=== PATIENT | female | born 1955 | race Caucasian/White ===

== ENCOUNTER → 2023-08-21 09:03 | Outpatient (REF) | payer MEDICARE, OTHER, SELFPAY ==
[2023-08-21 09:39] LABS: % Basophils 1.3 % (0-2); % Eosinophils 5.4 % (0-6); % Immature Granulocytes 0.2 % (0-0.5); % Lymphocytes 30.1 % (20.5-51.1); % Monocytes 11.7 % (1.7-9.3); % Neutrophils 51.3 % (42.2-75.2); Absolute Basophils 0.1 10^3/uL (0-0.2); Absolute Eosinophils 0.3 10^3/uL (0-0.7); Absolute Lymphocytes 1.6 10^3/uL (1.2-3.4); Absolute Monocytes 0.6 10^3/uL (0.1-0.6); Absolute Neutrophils 2.7 10^3/uL (1.4-6.5); Hematocrit 43.2 % (37.0-47.0); Hemoglobin 13.9 g/dL (12.0-16.0); Mean Corp Hgb Conc. 32.2 g/dL (33.0-37.0); Mean Corpuscular Hgb 29.4 pg (27.0-31.0); Mean Corpuscular Volume 91.5 fL (81.0-99.0); Mean Platelet Volume 9.6 fL (7.4-10.4); Nucleated Red Blood Cells % 0 %; Platelet Count 309 10^3/uL (130-400); Red Blood Cell Count 4.72 10^6/uL (4.20-5.40); Red Cell Dist. Width 13.5 % (11.5-14.5); White Blood Cell Count 5.2 10^3/uL (4.8-10.8)
[2023-08-21 10:22] LABS: ALT (SGPT) 17 U/L (0-35); AST (SGOT) 24 U/L (14-36); Albumin 4.1 g/dl (3.5-5.0); Alkaline Phosphatase 77 U/L (38-126); Blood Urea Nitrogen 14 mg/dl (7-17); Calcium 9.5 mg/dl (8.4-10.2); Carbon Dioxide 29 mmol/L (22-30); Chloride 106 mmol/L (98-107); Glucose 101 mg/dl (70-99); HDL Cholesterol 45 mg/dl; LDL Cholesterol, Calculated 167 mg/dl; Potassium 4.7 mmol/L (3.5-5.1); Sodium 143 mmol/L (135-145); Total Bilirubin 0.7 mg/dl (0.2-1.3); Total Cholesterol 236 mg/dl (50-199); Total Protein 7.2 g/dl (6.3-8.2); Triglyceride 124 mg/dl (10-149); Very Low Density Lipoprotein 24 mg/dl (0-30); eGFR > 60.00
[2023-08-21 10:33] LABS: TSH 1.85 uIU/ml (0.47-4.68)
== END ==
LOC: REG 09:03
PROVIDERS: ATTENDING PHYSICIAN Family Medicine
DX: E78.2 Mixed hyperlipidemia (principal); I10 Essential (primary) hypertension; Z98.84 Bariatric surgery status
CPT/HCPCS: 36415; 80053; 80061; 84443; 85025

== ENCOUNTER → 2023-09-12 12:13 | Outpatient (REF) | payer MEDICARE, OTHER, SELFPAY | LOC: HWRAD 12:13 | PROVIDERS: ATTENDING PHYSICIAN Orthopaedic Surgery Hand Surgery; FAMILY PHYSICIAN Family Medicine | DX: M25.511 Pain in right shoulder (principal) | CPT/HCPCS: 73200 ==

== ENCOUNTER 2023-09-24 06:02 | Day surgery (SDC) | payer MEDICARE, OTHER, SELFPAY ==
--- NOTE | 2023-08-29 11:06 | CM ---
Patient is scheduled for an elective R TSA on 09/24/23- she is a same day patient. Spoke with patient prior to surgery. Introduced role of Orthopedic Navigator. Patient reports that she lives with her in a two story home. Currently she
functions independently. She does not use any DME but has her sling, a raised toilet seat and two rolling walkers. She has never had VN services. PCP is Dr. Bridger Lemons.
Discussed orthopedic program and post surgical plans. Patient will return home when directed by surgeon. Reviewed MD follow up and transition to outpatient therapy. Patient is in agreement with tentative plan and states that her will be home
with her and can assist if needed.
Patient will complete online education.
Plan: Orthopedic Navigator will be involved in the care of patient after surgery and will reassess discharge needs at that time.
[2023-09-03 12:12] VITALS: BMI 32.2
[2023-09-03 13:35] LABS: Hematocrit 41.5 % (37.0-47.0); Hemoglobin 13.8 g/dL (12.0-16.0); Mean Corp Hgb Conc. 33.3 g/dL (33.0-37.0); Mean Corpuscular Hgb 29.4 pg (27.0-31.0); Mean Corpuscular Volume 88.5 fL (81.0-99.0); Mean Platelet Volume 10.1 fL (7.4-10.4); Platelet Count 339 10^3/uL (130-400); Red Blood Cell Count 4.69 10^6/uL (4.20-5.40); Red Cell Dist. Width 13.4 % (11.5-14.5); White Blood Cell Count 6.6 10^3/uL (4.8-10.8)
[2023-09-03 14:13] LABS: ALT (SGPT) 14 U/L (0-35); AST (SGOT) 23 U/L (14-36); Albumin 4.1 g/dl (3.5-5.0); Alkaline Phosphatase 80 U/L (38-126); Blood Urea Nitrogen 10 mg/dl (7-17); Calcium 9.3 mg/dl (8.4-10.2); Carbon Dioxide 29 mmol/L (22-30); Chloride 104 mmol/L (98-107); Estimated Creatinine Clearance 93 ml/min; Glucose 86 mg/dl (70-99); Potassium 4.7 mmol/L (3.5-5.1); Sodium 140 mmol/L (135-145); Total Bilirubin 0.8 mg/dl (0.2-1.3); Total Protein 7.1 g/dl (6.3-8.2); eGFR > 60.00
[2023-09-04 14:24] LABS: Glycohemoglobin (HgbA1c) 5.5 % (4.0-5.6)
[2023-09-24] VITALS (8 sets, daily range): BP systolic 105–146; BP diastolic 67–89; BMI 32.2
[2023-09-24] MEDS: CELEBREX 200 MG PO (06:21)
[2023-09-24] MEDS: TYLENOL 1000 MG PO (06:21)
[2023-09-24] MEDS: NORMOSOL-R 1000 IV (06:39)
[2023-09-24] MEDS: ANCEF 5 IV (11:23)
== END 2023-09-24 11:42 | disposition home or self-care (01) ==
LOC: SDS 06:02
PROVIDERS: ATTENDING PHYSICIAN Orthopaedic Surgery Hand Surgery; FAMILY PHYSICIAN Family Medicine
DX: M19.011 Primary osteoarthritis, right shoulder (principal)
CPT/HCPCS: 23472; 36415; 73020; 80053; 83036; 85027; 87070; 93005; C1713; C1776

== ENCOUNTER 2024-11-21 15:31 | Emergency (ER) | payer MEDICARE, OTHER, SELFPAY ==
[2024-11-21] VITALS (8 sets, daily range): BP systolic 126–169; BP diastolic 79–99; BMI 33.9
[2024-11-21 16:06] LABS: Hematocrit 42.3 % (37.0-47.0); Hemoglobin 13.8 g/dL (12.0-16.0); Mean Corp Hgb Conc. 32.6 g/dL (33.0-37.0); Mean Corpuscular Volume 89.6 fL (81.0-99.0); Nucleated Red Blood Cells % 0 %; Platelet Count 315 10^3/uL (130-400); Red Cell Dist. Width 13.7 % (11.5-14.5)
[2024-11-21 16:25] LABS: ALT (SGPT) 28 U/L (0-35); AST (SGOT) 53 U/L (14-36); Albumin 4.2 g/dl (3.5-5.0); Alkaline Phosphatase 91 U/L (38-126); Blood Urea Nitrogen 14 mg/dl (7-17); Calcium 9.6 mg/dl (8.4-10.2); Carbon Dioxide 24 mmol/L (22-30); Chloride 109 mmol/L (98-107); Glucose 180 mg/dl (70-99); Lipase 94 U/L (23-300); Potassium 4.6 mmol/L (3.5-5.1); Sodium 139 mmol/L (135-145); Total Protein 7.1 g/dl (6.3-8.2); eGFR > 60.00
--- NOTE | 2024-11-21 17:40 | ED.GENMED ---
History of Present Illness
General
Chief Complaint: Abdominal Pain
Time Seen by Provider: 11/21/24 17:05
History of Present Illness
History of Present Illness:
69-year-old female with history of high blood pressure presenting to the emergency department for episodic abdominal pain. Patient reports for the past 3 days she has had 3 episodes of described as severe upper abdominal pain. She notes that the
pain starts, intensifies and lasts for about 30 minutes, then resolves. She saw her primary care doctor who advised that if the symptoms persist to come to the hospital. Does note that she intermittently has had these episodes in the past, however
seem to be increasing in frequency. Reports history of gastric sleeve 5 years ago, otherwise denies abdominal surgeries. Denies any vomiting. Denies any changes in stool. Denies fever, chest pain, difficulty breathing. Denies any present pain,
did have an episode prior to arrival. Denies additional acute medical complaints
Past History
Past History
ED Past Medical History: HTN
ED Past Surgical History: Orthopedic and Other (Gastric sleeve surgery 2017)
Social History
Tobacco: Non-smoker
Alcohol: Occasional
Drug: None
Personal:
Living: with family
Employment: Employed
Family History
Family History: Other (Mother with a CVA at 64 years old)
Phy Exam
Physical Exam
Physical Exam:
General: Well-appearing, no clinical signs of dehydration, nontoxic and in no acute distress
HEENT: protecting airway
Neck: appears supple
CV: Normal heart rate, regular rhythm
Resp: No accessory muscle use, no increased work of breathing, lungs clear to auscultation bilaterally
Abd: Soft and non-distended, no tenderness to palpation
Extremities: No deformities, no swelling
Neuro: alert, no focal neurologic deficit
: deferred
Rectal: deferred
Psych: Normal affect
Skin: Intact
Course
Orders/Labs/Results
Orders:
Orders
11/21/24 15:42
Complete Blood Count/With Diff Urgent
Comprehensive Metabolic Panel Urgent
Lipase Urgent
11/21/24 17:20
CT Abd/pel W Iv And Oral Contr Urgent
Comment:
Reason For Exam: abdominal spasming, episodic
Iohexol [Omnipaque] See Protocol PO NOW STA
11/21/24 17:36
EKG- Treatment ONCE
11/21/24 17:37
Electrocardiogram (*1) Urgent
Reason for Study: Abdominal Pain
Abnormal Lab Results
11/21/24
15:42
MCHC 32.6 L g/dL
(33.0-37.0)
Absolute Neuts (auto) 7.7 H 10^3/uL
(1.4-6.5)
Absolute Monos (auto) 0.7 H 10^3/uL
(0.1-0.6)
Lymphocytes % 14.3 L %
(20.5-51.1)
Chloride 109 H mmol/L
(98-107)
Glucose 180 H mg/dl
(70-99)
AST 53 H U/L
(14-36)
11/21/24 15:42
11/21/24 15:42
Vital Signs
Initial and Last Documented VS:
Initial Vital Signs
Temp Pulse Resp BP Pulse Ox
97.5 F 75 18 139/79 99
11/21/24 15:36 11/21/24 15:36 11/21/24 15:36 11/21/24 15:36 11/21/24 15:36
Last Documented Vital Signs
Temp Pulse Resp BP Pulse Ox
97.5 F 70 21 161/89 95
11/21/24 15:36 11/21/24 22:15 11/21/24 22:15 11/21/24 22:00 11/21/24 22:15
MDM/Problems Addressed
MDM/Problems Addressed:
69-year-old female with history of high blood pressure presenting for episodic abdominal pain. Vital signs on arrival are normal.
On exam, patient is resting comfortably, no acute distress or discomfort. Notes that she had an episode prior to arrival, has since resolved. Patient describes severe episodes of abdominal pain, spasm-like in description and episodic.
Differential considerations include gastric spasming, known history of prior gastric sleeve. Patient denies any known association with food. Denies any severe right upper quadrant pain with lower suspicion for cholecystitis or cholelithiasis.
Intussusception is a consideration. Labs obtained prior to my examination, unremarkable. Will plan for CT abdomen pelvis for further assessment
22:50 -CT without obvious acute pathology. Does mention multiple calcified gallstones. Possible biliary colic. No present pain. No focal right upper quadrant tenderness, no elevation of white blood cell count. Without current concern for acute
cholecystitis. Ultimately feel stable for discharge with interval outpatient follow-up with surgery and GI. Copy of CT provided. Return precautions discussed and patient verbalized understanding
*Pulse Oximetry
SaO2: 99
Oxygen Mode of Delivery: Room air
Patient hypoxic: no
*Critical Care Note
Total Time (30-74mins, 75-104mins- exclusive of procedures): Not Applicable
ED Attending Note
-
Portions of this chart may have been created with voice recognition software.� Occasional wrong word or��sound alike� substitutions may have occurred due to the inherent limitations of voice recognition software.
Discharge Plan
Departure
Prescriptions:
No Action
hydroxyzine HCl 25 MG tablet
25 mg PO Q6HPRN PRN (Reason: hives)
Patient Comments:
TAKE 1 TABLET BY MOUTH EVERY 6 HOURS IF NEEDED
losartan 50 mg Tablet
50 mg PO DAILY
Referrals:
Bridger Lemons MD [Family Provider, Family Practice]
Interventions
Interventions:
*Risk Screen - Suicide Last Done: 11/21/24 17:53
*General Assessment Last Done: 11/21/24 17:53
*Neglect/Abuse Screening Last Done: 11/21/24 17:53
*ED- Fall Risk Assessment Last Done: 11/21/24 17:53
*ED COVID-19 Vaccine History Last Done: 11/21/24 17:53
[id number] Assessment Last Done: 11/21/24 17:53
Discharge Date and Time
Print Language: CROATIAN
[2024-11-21] MEDS: OMNIPAQUE 50 ML PO (17:41)
== END 2024-11-21 23:08 | disposition home or self-care (01) ==
LOC: EMR 15:31
PROVIDERS: Emergency Medicine; EMERGENCY PHYSICIAN Student in an Organized Health Care Education/Training Program; FAMILY PHYSICIAN Family Medicine
DX: K80.20 Calculus of gallbladder without cholecystitis without obstruction (principal); I10 Essential (primary) hypertension; Z98.84 Bariatric surgery status; Z82.3 Family history of stroke
CPT/HCPCS: 99284; 74177; 80053; 83690; 85025; 93005; Q9967

== ENCOUNTER → 2024-12-12 09:51 | Outpatient (REF) | payer MEDICARE, OTHER, SELFPAY ==
[2024-12-12 11:07] LABS: Hematocrit 42.8 % (37.0-47.0); Hemoglobin 13.9 g/dL (12.0-16.0); Mean Corp Hgb Conc. 32.5 g/dL (33.0-37.0); Mean Corpuscular Volume 91.1 fL (81.0-99.0); Nucleated Red Blood Cells % 0 %; Platelet Count 362 10^3/uL (130-400); Red Cell Dist. Width 13.9 % (11.5-14.5)
[2024-12-12 14:32] LABS: ALT (SGPT) 20.1 U/L (0-35); AST (SGOT) 22.8 U/L (14-36); Albumin 4.22 g/dl (3.5-5.0); Alkaline Phosphatase 92.3 U/L (38-126); Amylase 55.7 U/L (30-110); Calcium 9.36 mg/dl (8.4-10.2); Carbon Dioxide 26.7 mmol/L (22-30); Chloride 109 mmol/L (98-107); Glucose 91 mg/dl (70-99); HDL Cholesterol 43 mg/dl; LDL Cholesterol, Calculated 181.7 mg/dl; Lipase 79.4 U/L (23-300); Potassium 4.43 mmol/L (3.5-5.1); Sodium 141 mmol/L (135-145); Total Protein 7.10 g/dl (6.3-8.2); Very Low Density Lipoprotein 34.8 mg/dl (0-30)
[2024-12-12 14:48] LABS: Blood Urea Nitrogen 8 mg/dl (7-17); eGFR > 60.00
[2024-12-12 16:57] LABS: Hepatitis B Surface Antigen Negative (Negative)
[2024-12-12 17:33] LABS: Hepatitis A Antibody, Total Negative (Negative)
== END ==
LOC: REG 09:51
PROVIDERS: ATTENDING PHYSICIAN Internal Medicine; FAMILY PHYSICIAN Family Medicine
DX: R74.8 Abnormal levels of other serum enzymes (principal); E78.2 Mixed hyperlipidemia; I10 Essential (primary) hypertension; Z00.01 Encounter for general adult medical examination with abnormal findings; R10.9 Unspecified abdominal pain; F39 Unspecified mood [affective] disorder
CPT/HCPCS: 36415; 80053; 80061; 82150; 83690; 85025; 86704; 86706; 86708; 87340; 87522

== ENCOUNTER → 2024-12-28 10:30 | Outpatient (REF) | payer MEDICARE, OTHER, SELFPAY | LOC: HWWDC 10:30 | PROVIDERS: ATTENDING PHYSICIAN Obstetrics & Gynecology; FAMILY PHYSICIAN Family Medicine | DX: Z12.31 Encounter for screening mammogram for malignant neoplasm of breast (principal); Z78.0 Asymptomatic menopausal state | CPT/HCPCS: 77063; 77067; 77080 ==

== ENCOUNTER → 2025-01-08 07:21 | Outpatient (REF) | payer MEDICARE, OTHER, SELFPAY | LOC: RAD 07:21 | PROVIDERS: ATTENDING PHYSICIAN Internal Medicine; FAMILY PHYSICIAN Family Medicine | DX: R10.13 Epigastric pain (principal); R74.8 Abnormal levels of other serum enzymes | CPT/HCPCS: 78226; A9537 ==

== ENCOUNTER 2025-02-24 06:38 | Day surgery (SDC) | payer MEDICARE, OTHER, SELFPAY | END 2025-02-24 12:52 | disposition home or self-care (01) | LOC: GI 06:38 | PROVIDERS: ATTENDING PHYSICIAN Internal Medicine; FAMILY PHYSICIAN Family Medicine | DX: Z12.11 Encounter for screening for malignant neoplasm of colon (principal); K57.30 Diverticulosis of large intestine without perforation or abscess without bleeding; K22.89 Other specified disease of esophagus; K25.4 Chronic or unspecified gastric ulcer with hemorrhage; K44.9 Diaphragmatic hernia without obstruction or gangrene; K31.89 Other diseases of stomach and duodenum; Q40.2 Other specified congenital malformations of stomach; K20.90 Esophagitis, unspecified without bleeding; K25.9 Gastric ulcer, unspecified as acute or chronic, without hemorrhage or perforation; D12.3 Benign neoplasm of transverse colon; D12.5 Benign neoplasm of sigmoid colon; K63.5 Polyp of colon; K29.50 Unspecified chronic gastritis without bleeding; K22.70 Barrett's esophagus without dysplasia; K86.89 Other specified diseases of pancreas; K64.8 Other hemorrhoids; R10.13 Epigastric pain | CPT/HCPCS: 45385; 45380; 43239; 88305; 88342 ==